=== PATIENT | female | born 1935 | race Caucasian/White ===

== ENCOUNTER 2017-02-03 17:06 | Inpatient (IN) | payer OTHER ==
[~2017-02-03] VITALS: Ht 162.6 cm; Wt 69.1 kg
[~2017-02-03 17:06] MED LIST: ACT15 PO; ALL180 PO; ASPCH81; ATOR-22 PO; CLON0.5T3 PO; CLOP1TAB15 PO; CLX20 PO; CRG3125 PO; DTRSR4 PO; GLC5 PO; LISI5TAB3 PO; LSX20 PO; NTRGSL/4 UT
[2017-02-03] MEDS ORDERED: ALBUT/IPRATROP 3MG/0.5MG NEB 3 ML VIAL INH ONE (17:45)
[2017-02-03 19:20] LABS: MANUAL MICROSCOPIC REQUIRED? NO; REVIEW REQ? NO; URINE APPEARANCE CLOUDY (CLEAR); URINE BILIRUBIN NEG (NEG); URINE COLOR YELLOW; URINE NITRITE POS (NEG); URINE PH 5.5 (4.5-7.5); URINE SPECIFIC GRAVITY 1.016 (1.000-1.030); UROBILINOGEN NEG (NEG); ZZUR CULT IF INDIC CLEAN CATCH YES
--- NOTE | 2017-02-03 19:27 | DIAGNOSTIC IMAGING REPORT ---
CHEST 2 VIEWS ROUTINE CLINICAL HISTORY: Shortness of breath. COMPARISON STUDY: Chest radiograph January 31, 2007 FINDINGS: A dual lead left subclavian pacemaker is in place. There is no pneumothorax or pleural effusion. There is no consolidation to suggest pneumonia. Pulmonary vascularity is normal. IMPRESSION: No acute cardiopulmonary findings. Electronically signed by: Alfredo Mosquera M.D. 02/03/2017 7:26 PM Dictated Date/Time: 02/03/2017 7:24 PM
[2017-02-03 19:50] LABS: BASO % 0.6 %; BASO ABS # 0.04 K/uL (0-0.2); COMPLETE YES; EOS % 5.2 %; HEMATOCRIT 38.4 % (37-47); IG% 0.2 %; LYMPH % 22.8 %; LYMPH ABS # 1.45 K/uL (1.2-3.4); MEAN CELL VOLUME 92.3 fL (80-100); MEAN CORPUSCULAR HEMOGLOBIN 30.3 pg (25-34); MEAN CORPUSCULAR HGB CONC 32.8 g/dl (32-36); MONO % 10.1 %; NEUT % 61.1 %; PLATELET COUNT 177 K/uL (130-400); RED BLOOD COUNT 4.16 M/uL (4.2-5.4); WHITE BLOOD COUNT 6.36 K/uL (4.8-10.8)
[2017-02-03 20:10] LABS: ALT/SGPT 16 U/L (12-78); AST/SGOT 16 U/L (15-37); BLOOD UREA NITROGEN 16 mg/dl (7-18); BUN/CREATININE RATIO 15.3 (10-20); CARBON DIOXIDE 30 mmol/L (21-32); CHLORIDE 103 mmol/L (98-107); CREATININE 1.02 mg/dl (0.60-1.20); GLUCOSE 163 mg/dl (70-99); SODIUM 138 mmol/L (136-145)
[2017-02-03 20:16] LABS: ALKALINE PHOSPHATASE 47 U/L (45-117)
[2017-02-03] MEDS ORDERED: ASPI81TA28 PO (20:16)
[2017-02-03] MEDS ORDERED: SIMV40TA2 PO (20:16)
[2017-02-03] MEDS ORDERED: CARV3.12 PO (20:16)
[2017-02-03] MEDS ORDERED: CITA20TA4 PO (20:16)
[2017-02-03] MEDS ORDERED: LISI10TA PO (20:16)
[2017-02-03] MEDS ORDERED: GLIM1TAB2 PO (20:16)
[2017-02-03] MEDS ORDERED: RISP0.5T10 PO (20:16)
[2017-02-03] MEDS ORDERED: DTR/5 PO (20:16)
[2017-02-03] MEDS ORDERED: CEFTRIAXONE SOD INJ 1 GM ADDVIAL IV STA (20:31)
[2017-02-03] MEDS ORDERED: METHYLPREDNISOLONE 125 MG VIAL IV STA (20:31)
[2017-02-03] MEDS ORDERED: GLUCOSE 10 TABS/TUBE PO PRN (22:00)
[2017-02-03] MEDS ORDERED: GLUCAGON FOR INJ 1 MG VIAL SQ PRN (22:00)
[2017-02-03] MEDS ORDERED: GLUCOSE 40% GEL 15 GM TUBE PO PRN (22:00)
[2017-02-03] MEDS ORDERED: DEXTROSE 50% 50 ML SYR IV PRN (22:00)
--- NOTE | 2017-02-03 22:37 | EMERGENCY ROOM VISIT NOTE ---
History First contact with patient: 17:28 Chief Complaint: RESPIRATORY PROBLEMS Stated Complaint: HARD TIME BREATHING, SORES ON HER BODY Nursing Triage Summary: pt states difficulty breathing for "months now worsening today," daughter here states she is unable to let mother go home in "condition she is in without her knowing if she is ok." Pt 93% on RA, RR 22 at this time, increased RR with exertion. Pt lungs clear to auscultation at this time. History of Present Illness The patient is a 81 year old female who presents to the Emergency Room with complaints of intermittent episodes of shortness of breath over the past few months. The patient is accompanied today by her daughter, who helps provide much of the history. The patient has a history of cardiac disease with pacemaker, as well as diabetes. The patient symptoms are distinctly worse with walking up and down the stairs to use the bathroom at home. The patient does not have episodes of chest pain with this, but needs to rest in order to breathe properly. Sometimes this will happen at rest when she is not doing anything at all. She has not had fever or chills. No abdominal pain. She believes that she has been eating and drinking as normal. She does follow with [facility], and states that she saw her primary care physician earlier in the week. She was felt to be at her baseline for that visit, and was rescheduled for a routine visit in March. The patient does have cats at home, and while she does not have a known allergy to this, there is concern there may be some allergic factors involved according to the family. The patient does not wear oxygen at home. No history of tobacco use or known COPD/emphysema. She rates her current discomfort a 2/10. Review of Systems More than 10 systems were reviewed and otherwise negative with the exception of history of present illness. Past Medical/Surgical History History of diabetes, cardiac disease, pacemaker Family History No pertinent family history Social History Smoking Status: Never Smoker Current/Historical Medications Scheduled Aspirin (Aspirin Ec), 81 MG PO DAILY Carvedilol (Coreg), 3.125 MG PO BIDM Citalopram Hydrobromide (Citalopram Hydrobromide), 20 MG PO HS Glimepiride (Glimepiride), 1 MG PO QAM Lisinopril (Prinivil), 10 MG PO DAILY Nitroglycerin (Nitrostat), 0.4 MG UT PRN Oxybutynin Chloride (Ditropan), 5 MG PO BID Risperidone (Risperdal), 0.5 MG PO QAM Simvastatin (Zocor), 40 MG PO HS Physical Exam Vital Signs Date Time Temp Pulse Resp B/P (MAP) Pulse Ox O2 Delivery O2 Flow Rate FiO2 02/03/17 22:06 59 19 97 02/03/17 22:01 165/97 02/03/17 21:51 59 18 96 02/03/17 21:36 66 19 94 02/03/17 21:31 156/96 02/03/17 21:21 61 19 98 02/03/17 21:16 61 22 95 02/03/17 21:02 163/106 02/03/17 21:01 65 19 91 02/03/17 20:55 66 02/03/17 20:46 66 20 92 02/03/17 20:31 63 19 136/75 93 02/03/17 20:16 63 19 97 02/03/17 20:01 65 20 121/74 95 02/03/17 19:46 66 18 96 02/03/17 19:41 72 22 96 Nasal Cannula 2.0 02/03/17 19:39 139/74 02/03/17 19:30 Nasal Cannula 2.0 02/03/17 19:30 87 Room Air 02/03/17 19:26 65 21 89 02/03/17 19:11 66 20 92 02/03/17 19:06 78 24 02/03/17 18:36 70 20 02/03/17 18:06 67 23 02/03/17 17:48 92 Room Air 02/03/17 17:36 73 24 92 02/03/17 17:31 124/58 02/03/17 17:24 72 02/03/17 17:19 173/72 02/03/17 17:18 92 Room Air 02/03/17 17:18 92 Room Air 02/03/17 17:09 36.5 79 20 157/67 95 Room Air Physical Exam VITALS: Vitals are noted on the nurse's note and reviewed by myself. Vital signs with hypoxia GENERAL: Elderly-appearing female who is comfortable and cooperative with the exam. She is frail, but able to speak in full sentences. HEART: Regular rate and rhythm without murmurs gallops or rubs. LUNGS: Essentially clear breath sounds bilateral. Lung sounds are best appreciated in the lower miller, while the upper miller do sound somewhat distant. ABDOMEN: Positive normal bowel sounds x 4. Soft, nontender, without masses or organomegaly. No guarding or rebound tenderness. No CVA tenderness. MUSCULOSKELETAL: No muscle atrophy, erythema, or edema noted. Full range of motion without joint tenderness in all extremities. NEURO: Patient was alert and oriented to person place and time. CN II through XII grossly intact. SKIN: The skin was with several superficial scratch/excoriated areas primarily on the proximal thighs and anterior lower legs. None of these appear distinctly infected Medical Decision & Procedures ER Provider Diagnostic Interpretation: CHEST 2 VIEWS ROUTINE CLINICAL HISTORY: Shortness of breath. COMPARISON STUDY: Chest radiograph January 31, 2007 FINDINGS: A dual lead left subclavian pacemaker is in place. There is no pneumothorax or pleural effusion. There is no consolidation to suggest pneumonia. Pulmonary vascularity is normal. IMPRESSION: No acute cardiopulmonary findings. Laboratory Results 02/03/17 19:35 Red Blood Count 4.16, Mean Corpuscular Volume 92.3, Mean Corpuscular Hemoglobin 30.3, Mean Corpuscular Hemoglobin Concent 32.8, Mean Platelet Volume 9.0, Neutrophils (%) (Auto) 61.1, Lymphocytes (%) (Auto) 22.8, Monocytes (%) (Auto) 10.1, Eosinophils (%) (Auto) 5.2, Basophils (%) (Auto) 0.6, Neutrophils # (Auto ) 3.89, Lymphocytes # (Auto) 1.45, Monocytes # (Auto) 0.64, Eosinophils # (Auto ) 0.33, Basophils # (Auto) 0.04 02/03/17 19:35 Test 02/03/17 00:00 02/03/17 19:35 02/03/17 19:43 Urine Color YELLOW Urine Appearance CLOUDY (CLEAR) Urine pH 5.5 (4.5-7.5) Urine Specific [place] 1.016 (1.000-1.030) Urine Protein NEG (NEG) Urine Glucose (UA) NEG (NEG) Urine Ketones NEG (NEG) Urine Occult Blood NEG (NEG) Urine Nitrite POS (NEG) Urine Bilirubin NEG (NEG) Urine Urobilinogen NEG (NEG) Urine Leukocyte Esterase LARGE (NEG) Urine WBC (Auto) >30 /hpf (0-5) Urine RBC (Auto) 0-4 /hpf (0-4) Urine Hyaline Casts (Auto) 1-5 /lpf (0-5) Urine Epithelial Cells (Auto) 10-20 /lpf (0-5) Urine Bacteria (Auto) 3+ (NEG) White Blood Count 6.36 K/uL (4.8-10.8) Red Blood Count 4.16 M/uL (4.2-5.4) Hemoglobin 12.6 g/dL (12.0-16.0) Hematocrit 38.4 % (37-47) Mean Corpuscular Volume 92.3 fL (80-100) Mean Corpuscular Hemoglobin 30.3 pg (25-34) Mean Corpuscular Hemoglobin Concent 32.8 g/dl (32-36) Platelet Count 177 K/uL (130-400) Mean Platelet Volume 9.0 fL (7.4-10.4) Neutrophils (%) (Auto) 61.1 % Lymphocytes (%) (Auto) 22.8 % Monocytes (%) (Auto) 10.1 % Eosinophils (%) (Auto) 5.2 % Basophils (%) (Auto) 0.6 % Neutrophils # (Auto) 3.89 K/uL (1.4-6.5) Lymphocytes # (Auto) 1.45 K/uL (1.2-3.4) Monocytes # (Auto) 0.64 K/uL (0.11-0.59) Eosinophils # (Auto) 0.33 K/uL (0-0.5) Basophils # (Auto) 0.04 K/uL (0-0.2) RDW Standard Deviation 43.8 fL (36.4-46.3) RDW Coefficient of Variation 13.0 % (11.5-14.5) Immature Granulocyte % (Auto) 0.2 % Immature Granulocyte # (Auto) 0.01 K/uL (0.00-0.02) Anion Gap 5.0 mmol/L (3-11) Estimated GFR () 58.9 Estimated GFR (Non- 50.8 BUN/Creatinine Ratio 15.3 (10-20) Calcium Level 9.0 mg/dl (8.5-10.1) Total Bilirubin 0.2 mg/dl (0.2-1) Aspartate Amino Transf (AST/SGOT) 16 U/L (15-37) Alanine Aminotransferase (ALT/SGPT) 16 U/L (12-78) Alkaline Phosphatase 47 U/L (45-117) Pro-B-Type Natriuretic Peptide 202 pg/ml (0-1800) Total Protein 6.7 gm/dl (6.4-8.2) Albumin 3.4 gm/dl (3.4-5.0) Globulin 3.3 gm/dl (2.5-4.0) Albumin/Globulin Ratio 1.0 (0.9-2) Chemistry Specimen Hemolysis Bedside Troponin I < 0.030 ng/ml (0-0.045) Medications Administered Medications (Trade) Dose Ordered Sig/Cesar Route Start Time Stop Time Status Last Admin Dose Admin Albuterol/ Ipratropium (Duoneb) 3 ml NOW ONCE INH 02/03/17 17:45 02/03/17 17:46 DC 02/03/17 17:45 3 ML Methylprednisolone Sodium Succinate (Solu-Medrol IV) 125 mg NOW STAT IV 02/03/17 20:31 02/03/17 20:32 DC 02/03/17 20:48 125 MG Ceftriaxone Sodium (Rocephin Inj) 1 gm NOW STAT IV 02/03/17 20:31 02/03/17 20:32 DC 02/03/17 20:52 1 GM ED Course Physical exam and history were performed. Nursing notes, EMR, and Medication List were personally reviewed. Patient appears to have episodes of symptomatic shortness of breath. She does have a history of both diabetes and significant cardiac disease. IV access was established and labs were obtained. The patient's breath sounds are essentially clear, however they are somewhat distant in the upper miller, and I did elect to give her a DuoNeb treatment here in the department. EKG was performed and was normal sinus rhythm with occasional pacing. There was no sign of ischemia. The patient's blood work is as above and was reviewed. She does not have a significant elevated white blood cell count, gross anemia, bandemia, or significant electrolyte imbalance. Troponin 1 is negative. Her urine is highly suggestive of a UTI, and she was given Rocephin IV here in the department. The patient did have an unprovoked episode of hypoxia, where her pulse ox was 87%. This event was witnessed by nursing, and the patient did indicate to nursing that this has occurred in the past. The patient was not having dysrhythmia during this episode, and her symptoms improved after being placed on 2 L oxygen nasal cannula. I discussed the case with my attending physician, Dr Marcos, who also independently evaluated the patient. Our concern for the patient is that she is having episodes of symptomatic shortness of breath and hypoxia. She is a cardiac patient who is also diabetic. Overall I do not feel the patient is stable for discharge home at this time. She was given a dose of Solu-Medrol as this may help with her breathing. I discussed the case with the on-call [facility] hospitalist, who agreed to evaluate patient here in the department. Please see their dictation for further patient course, plan, and disposition. The chart was completed utilizing [employer] Speech Voice Recognition Software. Grammatical errors, random word insertions, pronoun errors, and incomplete sentences are an occasional consequence of this system due to software limitations, ambient noise, and hardware issues. Any formal questions or concerns about the content, text, or information contained within the body of this dictation should be directly addressed to the provider for clarification. . Medical Decision Differential diagnosis: Etiologies such as infections, reactive airway disease, pneumonia, pneumothorax , COPD, CHF, cardiac ischemia, pulmonary embolism, musculoskeletal, gastrointestinal, as well as others were entertained. Blood Pressure Screening Patient's blood pressure: Elevated blood pressure Blood pressure disposition: Did not require urgent referral (Patient being admitted) Impression Primary Impression: Hypoxia Additional Impression: UTI (urinary tract infection) Departure Information Referrals Timo Hart M.D. (PCP) Patient Instructions My [facility] Problem Qualifiers
--- NOTE | 2017-02-03 22:39 | EMERGENCY ROOM VISIT NOTE ---
ED Visit Note First contact with patient: 17:28 The patient was seen and examined with Gautam Langley PA-C. I agree with the history, physical and findings. Please see the note for disposition and details. The patient is doing better with supplemental oxygen and a nebulizer treatment. Due to the hypoxia the patient will need to be treated in the hospital. Consultation was made with internal medicine.
[2017-02-03] MEDS ORDERED: ACETAMINOPHEN 325 MG TAB PO PRN (23:00)
[2017-02-03] MEDS ORDERED: POLYETHYLENE (MIRALAX) 17 GM PACK PO PRN (23:00)
[2017-02-03] MEDS ORDERED: ONDANSETRON INJ 2 MG/ML 2 ML VIAL IV PRN (23:00)
[2017-02-03] MEDS ORDERED: ALUMINUM/MAGNESIUM/SIMETH (MAALOX MAX) 30 ML UDC PO PRN (23:00)
[2017-02-03] MEDS ORDERED: MAGNESIUM HYDROXIDE SUSP 30 ML UDC PO PRN (23:00)
[2017-02-04] VITALS (9 sets, daily range): BP systolic 115–137; BP diastolic 65–74; PULSE 66–80; TEMP 36.6–36.9; O2SAT 91–96; Ht 162.6 cm; Wt 69.1 kg
--- NOTE | 2017-02-04 01:00 | History and Physical ---
History & Physical Date & Time of Service: Feb 04, 2017 at 00:37 Chief Complaint: Hypoxia, Uti Primary Care Physician: Timo Hart M.D. History of Present Illness Source: patient, family, clinic records This is an 81 year old female with a PMH of CAD s/p stents, sick sinus syndrome s/p permanent pacemaker, depression/anxiety, HTN, DM2, HLD presents with shortness of breath for the past few months and worse the past few days. She denies any chest pain. Denies fevers/chills, denies cough/production. She states that the breathing is worse when she is walking up and down stairs and with exertion, but improves with rest. Denies smoking history; no immediate family members smoke. As per family members, they are concerned because the patient may be allergic to cats and she has some at home. Some family members spoke to me on their own expressing concern about her home situation - the cats may be urinating around the house as the house smells of cat urine. She does not take any inhalers, but was told she was to be on an inhaler in the past. Social History Smoking Status: Never Smoker Immunizations History of Influenza Vaccine: Yes Influenza Vaccine Date: Dec 21, 2006 History of Tetanus Vaccine?: Yes Tetanus Immunization Date: Dec 21, 2006 History of Pneumococcal: No History of Hepatitis B Vaccine: No Multi-Drug Resistant Organisms History of MDRO: No Allergies Coded Allergies: Tramadol (Verified Allergy, Unknown, 04/16/09) Home Medications Scheduled Aspirin (Aspirin Ec), 81 MG PO DAILY Carvedilol (Coreg), 3.125 MG PO BIDM Citalopram Hydrobromide (Citalopram Hydrobromide), 20 MG PO HS Glimepiride (Glimepiride), 1 MG PO QAM Lisinopril (Prinivil), 10 MG PO DAILY Nitroglycerin (Nitrostat), 0.4 MG UT PRN Oxybutynin Chloride (Ditropan), 5 MG PO BID Risperidone (Risperdal), 0.5 MG PO QAM Simvastatin (Zocor), 40 MG PO HS Review of Systems Constitutional: No fever, No chills Eyes: No worsening of vision ENT: No hearing loss Respiratory: + shortness of breath, + dyspnea on exertion, No cough, No sputum , No wheezing, No dyspnea at rest, No hemoptysis Cardiovascular: No chest pain, No orthopnea, No PND, No edema, No claudication , No palpitations Abdomen: No pain, No nausea, No vomiting, No diarrhea, No constipation, No GI bleeding Musculoskeletal: No joint pain, No muscle pain Genitourinary - Female: No dysuria, No urinary frequency, No urinary urgency, No urinary incontinence, No urinary retention, No hematuria Neurologic: No weakness, No numbness/tingling, No vertigo, No balance problems Psychiatric: No depression symptoms, No anxiety, No insomnia Endocrine: No fatigue, No excessive thirst Hematologic / Lymphatic: No abnormal bleeding/bruising Integumentary: No rash Allergic / Immunologic: + pet sensitivities, No environmental allergies, No seasonal allergies Physical Exam Vital Signs Date Time Temp Pulse Resp B/P (MAP) Pulse Ox O2 Delivery O2 Flow Rate FiO2 02/03/17 23:22 64 20 97 02/03/17 23:07 65 20 97 02/03/17 23:02 151/105 02/03/17 23:01 64 20 96 Nasal Cannula 2.0 02/03/17 22:41 61 18 95 02/03/17 22:32 136/94 02/03/17 22:26 65 17 95 02/03/17 22:11 66 16 96 02/03/17 22:06 59 19 97 02/03/17 22:01 165/97 02/03/17 21:51 59 18 96 02/03/17 21:36 66 19 94 02/03/17 21:31 156/96 02/03/17 21:21 61 19 98 02/03/17 21:16 61 22 95 02/03/17 21:02 163/106 02/03/17 21:01 65 19 91 02/03/17 20:55 66 02/03/17 20:46 66 20 92 02/03/17 20:31 63 19 136/75 93 02/03/17 20:16 63 19 97 02/03/17 20:01 65 20 121/74 95 02/03/17 19:46 66 18 96 02/03/17 19:41 72 22 96 Nasal Cannula 2.0 02/03/17 19:39 139/74 02/03/17 19:30 Nasal Cannula 2.0 02/03/17 19:30 87 Room Air 02/03/17 19:26 65 21 89 02/03/17 19:11 66 20 92 02/03/17 19:06 78 24 02/03/17 18:36 70 20 02/03/17 18:06 67 23 02/03/17 17:48 92 Room Air 02/03/17 17:36 73 24 92 02/03/17 17:31 124/58 02/03/17 17:24 72 02/03/17 17:19 173/72 02/03/17 17:18 92 Room Air 02/03/17 17:18 92 Room Air 02/03/17 17:09 36.5 79 20 157/67 95 Room Air General Appearance: no apparent distress Head: normocephalic, atraumatic Eyes: normal inspection ENT: hearing grossly normal Neck: supple, no adenopathy, thyroid normal, no JVD Respiratory/Chest: chest non-tender, lungs clear, normal breath sounds, no respiratory distress, no accessory muscle use Cardiovascular: regular rate, rhythm, no edema, no gallop, no JVD, no murmur, normal peripheral pulses Abdomen/GI: normal bowel sounds, non tender, soft Back: no CVA tenderness, no muscle spasm Extremities/Musculoskelatal: normal inspection, no calf tenderness, normal capillary refill, no pedal edema, normal range of motion 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, no motor/sensory deficits, alert, oriented x 3 Skin: normal color Lymphatic: no adenopathy Diagnostics Laboratory Results Results Past 24 Hours Test 02/03/17 19:35 02/03/17 19:43 Range/Units White Blood Count 6.36 4.8-10.8 K/uL Red Blood Count 4.16 4.2-5.4 M/uL Hemoglobin 12.6 12.0-16.0 g/dL Hematocrit 38.4 37-47 % Mean Corpuscular Volume 92.3 80-100 fL Mean Corpuscular Hemoglobin 30.3 25-34 pg Mean Corpuscular Hemoglobin Concent 32.8 32-36 g/dl Platelet Count 177 130-400 K/uL Mean Platelet Volume 9.0 7.4-10.4 fL Neutrophils (%) (Auto) 61.1 % Lymphocytes (%) (Auto) 22.8 % Monocytes (%) (Auto) 10.1 % Eosinophils (%) (Auto) 5.2 % Basophils (%) (Auto) 0.6 % Neutrophils # (Auto) 3.89 1.4-6.5 K/uL Lymphocytes # (Auto) 1.45 1.2-3.4 K/uL Monocytes # (Auto) 0.64 0.11-0.59 K/uL Eosinophils # (Auto) 0.33 0-0.5 K/uL Basophils # (Auto) 0.04 0-0.2 K/uL RDW Standard Deviation 43.8 36.4-46.3 fL RDW Coefficient of Variation 13.0 11.5-14.5 % Immature Granulocyte % (Auto) 0.2 % Immature Granulocyte # (Auto) 0.01 0.00-0.02 K/uL Sodium Level 138 136-145 mmol/L Potassium Level 4.0 3.5-5.1 mmol/L Chloride Level 103 98-107 mmol/L Carbon Dioxide Level 30 21-32 mmol/L Anion Gap 5.0 3-11 mmol/L Blood Urea Nitrogen 16 7-18 mg/dl Creatinine 1.02 0.60-1.20 mg/dl Estimated GFR () 58.9 Estimated GFR (Non- 50.8 BUN/Creatinine Ratio 15.3 10-20 Random Glucose 163 70-99 mg/dl Calcium Level 9.0 8.5-10.1 mg/dl Total Bilirubin 0.2 0.2-1 mg/dl Aspartate Amino Transf (AST/SGOT) 16 15-37 U/L Alanine Aminotransferase (ALT/SGPT) 16 12-78 U/L Alkaline Phosphatase 47 45-117 U/L Pro-B-Type Natriuretic Peptide 202 0-1800 pg/ml Total Protein 6.7 6.4-8.2 gm/dl Albumin 3.4 3.4-5.0 gm/dl Globulin 3.3 2.5-4.0 gm/dl Albumin/Globulin Ratio 1.0 0.9-2 Chemistry Specimen Hemolysis Bedside Troponin I < 0.030 0-0.045 ng/ml Diagnostic Radiology CHEST 2 VIEWS ROUTINE CLINICAL HISTORY: Shortness of breath. COMPARISON STUDY: Chest radiograph January 31, 2007 FINDINGS: A dual lead left subclavian pacemaker is in place. There is no pneumothorax or pleural effusion. There is no consolidation to suggest pneumonia. Pulmonary vascularity is normal. IMPRESSION: No acute cardiopulmonary findings. EKG Sinus rhythm with Fusion complexes Low voltage QRS Impression Assessment and Plan This is an 81 year old female with a PMH of CAD s/p stents, sick sinus syndrome s/p permanent pacemaker, depression/anxiety, HTN, DM2, HLD presents with shortness of breath, dyspnea with exertion and hypoxia Shortness of Breath/Hypoxia possibly related to upper respiratory infection vs. allergy/asthma as per family, they are concerned about cat allergy improving symptoms with supplemental O2 via nasal cannula will start prednisone 40mg in AM, short taper nebulizers as needed O2 as needed, wean as tolerated may need inhaler on discharge CAD s/p stents no chest pain there is dyspnea with exertion will get an updated echo trend cardiac enzymes continue aspirin, b-maddison, statin Sick Sinus Syndrome s/p pacemaker in situ pacemaker interrogation Urinary Tract Infection UA dirty urine culture pending started on Rocephin DM2 hold oral agents sliding scale insulin started BSGs ACHS HTN blood pressure improving continue Lisinopril, Coreg Depression/Anxiety continue current medications DVT ppx subq heparin FULL CODE VTE Prophylaxis VTE Risk Assessment Done? Y/N: Yes Risk Level: Moderate
[2017-02-04 03:48] LABS: HEMATOCRIT 40.9 % (37-47); MEAN CELL VOLUME 92.1 fL (80-100); MEAN CORPUSCULAR HGB CONC 32.5 g/dl (32-36); MEAN PLATELET VOLUME 8.8 fL (7.4-10.4); PLATELET COUNT 192 K/uL (130-400); RED BLOOD COUNT 4.44 M/uL (4.2-5.4); WHITE BLOOD COUNT 7.03 K/uL (4.8-10.8)
[2017-02-04 04:07] LABS: BLOOD UREA NITROGEN 15 mg/dl (7-18); BUN/CREATININE RATIO 18.7 (10-20); CALCIUM 8.7 mg/dl (8.5-10.1); CARBON DIOXIDE 27 mmol/L (21-32); CHLORIDE 103 mmol/L (98-107); CREATININE 0.82 mg/dl (0.60-1.20); GLUCOSE 214 mg/dl (70-99); POTASSIUM 4.2 mmol/L (3.5-5.1); SODIUM 137 mmol/L (136-145)
[2017-02-04 04:13] LABS: CHOLESTEROL 118 mg/dl (0-200); CHOLESTEROL/HDL RATIO 2.4; CKMB/CK RATIO 1.4 (0-3.0); HDL CHOLESTEROL 49 mg/dl; LDL CHOLESTEROL CALCULATED 62 mg/dl; TRIGLYCERIDES 35 mg/dl (0-150); VERY LOW DENSITY LIPOPROT CALC 7 mg/dl
[2017-02-04] MEDS: HEPARIN SOD 5000 UNIT/0.5 ML CARP SQ SCH ×3 (06:03→21:31)
[2017-02-04] MEDS: ALBUT/IPRATROP 3MG/0.5MG NEB 3 ML VIAL INH SCH ×4 (07:10→18:40)
[2017-02-04] MEDS: ASPIRIN 81 MG ECTAB PO SCH (08:10)
[2017-02-04] MEDS: RISPERIDONE 0.5 MG TAB PO SCH (08:10)
[2017-02-04] MEDS: LISINOPRIL 10 MG TAB PO SCH (08:10)
[2017-02-04] MEDS: CARVEDILOL 3.125 MG TAB PO SCH ×2 (08:10→18:14)
[2017-02-04] MEDS: OXYBUTYNIN CHLORIDE 5 MG TAB PO SCH ×2 (08:10→21:28)
[2017-02-04] MEDS: INSULIN ASPART 100 UNITS/ML 3 ML PEN SC SCH ×4 (08:38→21:00)
[2017-02-04 12:29] LABS: CKMB/CK RATIO 1.6 (0-3.0)
--- NOTE | 2017-02-04 16:06 | ECHOCARDIOGRAM REPORT ---
*NOTICE TO RECEIVING [facility] This information is strictly Confidential and protected under [place] law. [place] law prohibits you from making any further disclosure of this information unless further disclosure is expressly permitted by the written consent of the person to whom it pertains or is authorized by law. A general authorization for the release of medical or other information is not sufficient for this purpose. Hospital accepts no responsibility if the information is made available to any other person, INCLUDING THE PATIENT. Interpretation Summary * Name: ALBARO CUBA Study Date: 02/04/2017 01:18 PM BP: 137/74 mmHg * Patient Location: [id number].4E\[id number]\E405\S\1 HR: 77 * : 1935 (M/d/yyyy) Gender: Female Height: 64 in * Age: 81 yrs Ethnicity: [place] Weight: 140 lb * Ordering Physician: Ryan Haynes * Referring Physician: Self, Referred * Performed By: Renato Araiza RDCS * * Reason For Study: CHF * BSA: 1.7 m2 * -- Conclusions -- * No regional wall motion abnormalities noted. * Left ventricular systolic function is normal to hyperdynamic. * The LV Ejection Fraction = 65-70%. * The right ventricle is normal size. * The right ventricular systolic function is normal as assessed by tricuspid annular plane systolic excursion (TAPSE) (normal >1.5 cm). * There is a pacemaker lead in the right ventricle. * Aortic valve sclerosis mild, without significant aortic valvular stenosis. * Doppler findings do not suggest pulmonary hypertension. * The inferior vena cava is dilated with appropriate inspiratory collapse, consistent with an intermediate right atrial pressure of 8 mm Hg. * There is a small circumferential pericardial effusion. * There are no echocardiographic indications of cardiac tamponade. Procedure Details * A complete two-dimensional transthoracic echocardiogram was performed (2D, M-mode, Doppler and color flow Doppler). * The study was technically adequate. Left Ventricle * The left ventricle is normal in size. * There is normal left ventricular wall thickness. * Ejection Fraction = 65-70%. * Left ventricular systolic function is normal. * The left ventricular wall motion is normal. * No regional wall motion abnormalities noted. Right Ventricle * The right ventricle is normal size. * There is a pacemaker lead in the right ventricle. * The right ventricular systolic function is normal as assessed by tricuspid annular plane systolic excursion (TAPSE) (normal >1.5 cm). Atria * The left atrial size is normal. * Right atrial size is normal. * There is no evidence of atrial septal defect, but resolution does not allow assessment for a patent foramen ovale. Mitral Valve * The anterior mitral valve leaflet is mildly calcified. * There is no mitral valve stenosis. * Significant mitral regurgitation is absent. Tricuspid Valve * The tricuspid valve is normal. * There is no tricuspid stenosis. * Significant tricuspid regurgitation is absent. * Doppler findings do not suggest pulmonary hypertension. Aortic Valve * The aortic valve is trileaflet. * Aortic valve sclerosis mild, without significant aortic valvular stenosis. * Aortic stenosis is absent. * There is no significant aortic regurgitation. Pulmonic Valve * The pulmonary valve is not well seen, but the Doppler examination is normal without significant regurgitation or stenosis. Great Vessels * The aortic root and proximal ascending aorta are normal sized. Pericardium/Pleural * There is a small circumferential pericardial effusion. * There are no echocardiographic indications of cardiac tamponade. Great Vessels * The inferior vena cava is dilated with appropriate inspiratory collapse, consistent with an intermediate right atrial pressure of 8 mm Hg. Left Ventricular Diastolic Function * Grade I diastolic dysfunction, (abnormal relaxation pattern). MMode 2D Measurements and Calculations IVSd 1.1 cm IVSs 1.3 cm LVIDd 4.1 cm LVIDs 1.7 cm LVPWd 1.1 cm LVPWs 1.5 cm IVS/LVPW 1.0 FS 57.1 % EDV(Teich) 73.1 ml ESV(Teich) 9.0 ml EF(Teich) 87.6 % EDV(cubed) 67.6 ml ESV(cubed) 5.4 ml EF(cubed) 92.1 % % IVS thick 20.2 % % LVPW thick 41.7 % LV mass(C)d 150.2 grams LV mass(C)dI 89.4 grams/m\S\2 LV mass(C)s 78.9 grams LV mass(C)sI 46.9 grams/m\S\2 SV(Teich) 64.1 ml SI(Teich) 38.1 ml/m\S\2 SV(cubed) 62.3 ml SI(cubed) 37.0 ml/m\S\2 ACS 1.6 cm LA dimension 3.1 cm LVOT diam 1.9 cm LVOT area 2.8 cm\S\2 LVAd ap4 15.5 cm\S\2 LVLd ap4 6.8 cm EDV(MOD-sp4) 29.9 ml EDV(sp4-el) 29.8 ml LVAs ap4 6.3 cm\S\2 LVLs ap4 4.9 cm ESV(MOD-sp4) 6.6 ml ESV(sp4-el) 6.9 ml EF(MOD-sp4) 77.8 % EF(sp4-el) 76.8 % LVAd ap2 12.3 cm\S\2 LVLd ap2 6.1 cm EDV(MOD-sp2) 21.4 ml EDV(sp2-el) 21.3 ml LVAs ap2 5.8 cm\S\2 LVLs ap2 5.2 cm ESV(MOD-sp2) 5.8 ml ESV(sp2-el) 5.4 ml EF(MOD-sp2) 73.0 % EF(sp2-el) 74.6 % LVLd %diff -13.08 % EDV(MOD-bp) 26.7 ml LVLs %diff 6.4 % ESV(MOD-bp) 6.2 ml EF(MOD-bp) 76.7 % SV(MOD-sp4) 23.3 ml SI(MOD-sp4) 13.9 ml/m\S\2 SV(MOD-sp2) 15.6 ml SI(MOD-sp2) 9.3 ml/m\S\2 SV(MOD-bp) 20.5 ml SI(MOD-bp) 12.2 ml/m\S\2 SV(sp4-el) 22.9 ml SI(sp4-el) 13.6 ml/m\S\2 SV(sp2-el) 15.9 ml SI(sp2-el) 9.5 ml/m\S\2 Doppler Measurements and Calculations MV E max shahram 87.4 cm/sec MV A max shahram 118.6 cm/sec MV E/A 0.74 MV dec time 0.25 sec Ao V2 max 149.4 cm/sec Ao max PG 8.9 mmHg Ao max PG (full) 2.1 mmHg SHAYLEE(V,A) 2.5 cm\S\2 SHAYLEE(V,D) 2.5 cm\S\2 LV V1 max PG 6.8 mmHg LV V1 max 130.3 cm/sec PA V2 max 101.5 cm/sec PA max PG 4.1 mmHg TR max shahram 253.0 cm/sec
[2017-02-04] MEDS: CEFTRIAXONE SOD INJ 1 GM in DEXTROSE 5% ADD-VANTAGE 50ML 50 ML IV SCH (21:27)
[2017-02-04] MEDS: CITALOPRAM 20 MG TAB PO SCH (21:28)
[2017-02-04] MEDS: SIMVASTATIN 40 MG TAB PO SCH (21:28)
[2017-02-04] MEDS: INSULIN GLARGINE SOLOSTAR 100 UNITS/ML 3 ML PEN SC SCH (21:31)
--- NOTE | 2017-02-04 22:33 | Progress Note ---
Medicine Progress Note Date & Time of Visit: Feb 04, 2017 at ~ 11:00 . Subjective Persistent dyspnea on exertion. Rare nonproductive cough. No anginal symptoms. No chest pain. No nausea, vomiting, diarrhea. . Objective Last 8 Hrs Date Time Temp Pulse Resp B/P (MAP) Pulse Ox O2 Delivery O2 Flow Rate FiO2 02/04/17 18:42 77 16 91 Room Air 02/04/17 15:55 36.6 80 22 133/65 (87) 91 Nasal Cannula 2.0 02/04/17 15:30 91 Nasal Cannula 2.0 02/04/17 14:21 76 16 92 Room Air Physical Exam: General- no distress Neck- no JVD Lungs- coarse rales at bases Heart- RRR, normal S1 and S2, no murmur or gallop appreciated Abdomen- + BS, soft, nontender Extremities- no pretibial edema or calf tenderness Neuro- alert Skin- warm and dry . Laboratory Results: Last 24 Hours Test 02/04/17 03:39 02/04/17 07:26 02/04/17 11:28 02/04/17 11:36 White Blood Count 7.03 K/uL Red Blood Count 4.44 M/uL Hemoglobin 13.3 g/dL Hematocrit 40.9 % Mean Corpuscular Volume 92.1 fL Mean Corpuscular Hemoglobin 30.0 pg Mean Corpuscular Hemoglobin Concent 32.5 g/dl RDW Standard Deviation 43.0 fL RDW Coefficient of Variation 12.7 % Platelet Count 192 K/uL Mean Platelet Volume 8.8 fL Prothrombin Time 11.0 SECONDS Prothromb Time International Ratio 1.0 Sodium Level 137 mmol/L Potassium Level 4.2 mmol/L Chloride Level 103 mmol/L Carbon Dioxide Level 27 mmol/L Anion Gap 7.0 mmol/L Blood Urea Nitrogen 15 mg/dl Creatinine 0.82 mg/dl Est Creatinine Clear Calc Drug Dose 49.6 ml/min Estimated GFR () 76.7 Estimated GFR (Non- 66.2 BUN/Creatinine Ratio 18.7 Random Glucose 214 mg/dl Calcium Level 8.7 mg/dl Total Creatine Kinase 64 U/L 57 U/L Creatine Kinase MB 0.9 ng/ml 0.9 ng/ml Creatine Kinase MB Ratio 1.4 1.6 Troponin I < 0.015 ng/ml < 0.015 ng/ml Triglycerides Level 35 mg/dl Cholesterol Level 118 mg/dl HDL Cholesterol 49 mg/dl LDL Cholesterol, Calculated 62 mg/dl VLDL Cholesterol, Calculated 7 mg/dl Cholesterol/HDL Ratio 2.4 Bedside Glucose 220 mg/dl 226 mg/dl Test 02/04/17 16:38 02/04/17 20:00 Bedside Glucose 244 mg/dl 174 mg/dl Assessment & Plan HYPOXIA / DYSPNEA ON EXERTION Progressive dyspnea on exertion without anginal symptoms. O2 saturation in ED as low as 87% on room air. Known history of coronary artery disease, status post PCI. No apparent pulmonary edema or interstitial lung disease on chest x-ray. Echo showed normal left ventricular wall motion and function, small pericardial effusion without tamponade. Receiving prednisone and nebulizer treatments. May be useful to check outpatient PFTs after course of steroid therapy. Check 2-step pulse oximetry prior to discharge. CORONARY ARTERY DISEASE Followed by Dr. Griffith. S/P PCI. Dyspnea on exertion could be secondary to myocardial ischemia. Echo shows normal LV wall motion and function. Probably unable to exercise adequately to achieve diagnostic treadmill stress test. Pharmacologic stress test considered, but patient had an adverse reaction to a stress test several years ago and is reluctant to have study repeated. Continue aspirin, carvedilol. HYPERTENSION Continue carvedilol, lisinopril. DM TYPE 2 Usually well-controlled on glimepiride. Expect elevated blood sugar secondary to steroid therapy. Check hemoglobin A1c. Hold glimepiride during hospital stay. FBS this morning = 220. Adjust Lantus/NovoLog per protocol. UTI (present on admission) UA showed leukocyte esterase, wbc's, bacteria. Urine culture growing Escherichia coli, sensitivities pending. Continue ceftriaxone pending final results. VTE PROPHYLAXIS SQ heparin. Ambulate. DISPOSITION Expected discharge to home. Family Medicine follow-up with Dr. Hart. Cardiology follow-up with Dr. Griffith. . Current Inpatient Medications: Current Inpatient Medications Medications (Trade) Dose Ordered Sig/Cesar Route Start Time Stop Time Status Last Admin Dose Admin Ceftriaxone Sodium 1 gm/ Dextrose 50 ml @ 100 mls/hr Q24H IV 02/04/17 21:00 02/07/17 21:29 02/04/17 21:27 100 MLS/HR Aspirin (Ecotrin Tab) 81 mg DAILY PO 02/04/17 08:00 03/06/17 08:59 02/04/17 08:10 81 MG Carvedilol (Coreg Tab) 3.125 mg BIDM PO 02/04/17 08:00 03/06/17 07:59 02/04/17 18:14 3.125 MG Citalopram Hydrobromide (celeXA TAB) 20 mg HS PO 02/04/17 21:00 03/06/17 20:59 02/04/17 21:28 20 MG Lisinopril (Zestril Tab) 10 mg DAILY PO 02/04/17 08:00 03/06/17 08:59 02/04/17 08:10 10 MG Oxybutynin Chloride (Ditropan Tab) 5 mg BID PO 02/04/17 08:00 03/06/17 08:59 02/04/17 21:28 5 MG Risperidone (Risperdal Tab) 0.5 mg QAM PO 02/04/17 08:00 03/06/17 08:59 02/04/17 08:10 0.5 MG Simvastatin (Zocor Tab) 40 mg HS PO 02/04/17 21:00 03/06/17 20:59 02/04/17 21:28 40 MG Insulin Aspart (novoLOG ASPART) SLIDING SCALE If C... ACHS SC 02/04/17 06:30 03/06/17 06:59 02/04/17 18:12 8 UNITS Glucose (Glucose 40% Gel) 15-30 GRAMS 15 GRAMS... UD PRN PO 02/03/17 22:00 03/05/17 21:59 Glucose (Glucose Chew Tab) 4-8 Tablets 4 Tabl... UD PRN PO 02/03/17 22:00 03/05/17 21:59 Dextrose (Dextrose 50% 50ML Syringe) 25-50ML OF 50% DW IV FOR... UD PRN IV 02/03/17 22:00 03/05/17 21:59 Glucagon (Glucagon Inj) 1 mg UD PRN SQ 02/03/17 22:00 03/05/17 21:59 Prednisone (PredniSONE TAB) 40 mg DAILY PO 02/04/17 08:00 03/06/17 08:59 02/04/17 08:10 40 MG Albuterol/ Ipratropium (Duoneb) 3 ml QIDR INH 02/04/17 08:00 03/06/17 07:59 02/04/17 18:40 3 ML Heparin Sodium (Porcine) (Heparin Sq 5000 Unit/0.5ml) 5,000 unit Q8H SQ 02/04/17 06:00 03/06/17 05:59 02/04/17 21:31 5,000 UNIT Acetaminophen (Tylenol Tab) 650 mg Q4H PRN PO 02/03/17 23:00 03/05/17 22:59 Al Hydrox/Mg Hydrox/Simethicone (Maalox Max Susp) 15 ml Q4H PRN PO 02/03/17 23:00 03/05/17 22:59 Magnesium Hydroxide (Milk Of Magnesia Susp) 30 ml Q6H PRN PO 02/03/17 23:00 03/05/17 22:59 Polyethylene (Miralax Powder Packet) 17 gm DAILY PRN PO 02/03/17 23:00 03/05/17 22:59 Ondansetron HCl (Zofran Inj) 4 mg Q6H PRN IV 02/03/17 23:00 03/05/17 22:59 Insulin Glargine (Lantus Solostar Pen) BSG UNITS LANTUS... BID SC 02/04/17 20:00 03/06/17 19:59 02/04/17 21:31 8 UNITS
[2017-02-05] VITALS (9 sets, daily range): BP systolic 127–150; BP diastolic 67–80; PULSE 64–79; TEMP 36.5–36.6; O2SAT 90–100
[2017-02-05] MEDS: HEPARIN SOD 5000 UNIT/0.5 ML CARP SQ SCH ×3 (06:31→21:03)
[2017-02-05] MEDS: ALBUT/IPRATROP 3MG/0.5MG NEB 3 ML VIAL INH SCH ×4 (07:16→19:31)
[2017-02-05] MEDS: CARVEDILOL 3.125 MG TAB PO SCH ×2 (08:30→16:50)
[2017-02-05] MEDS: OXYBUTYNIN CHLORIDE 5 MG TAB PO SCH ×2 (08:30→21:03)
[2017-02-05] MEDS: RISPERIDONE 0.5 MG TAB PO SCH (08:31)
[2017-02-05] MEDS: ASPIRIN 81 MG ECTAB PO SCH (08:31)
[2017-02-05] MEDS: LISINOPRIL 10 MG TAB PO SCH (08:31)
[2017-02-05] MEDS: INSULIN ASPART 100 UNITS/ML 3 ML PEN SC SCH ×4 (08:39→21:02)
[2017-02-05] MEDS: INSULIN GLARGINE SOLOSTAR 100 UNITS/ML 3 ML PEN SC SCH ×2 (08:40→21:02)
[2017-02-05] MEDS: CEFTRIAXONE SOD INJ 1 GM in DEXTROSE 5% ADD-VANTAGE 50ML 50 ML IV SCH (21:03)
[2017-02-05] MEDS: CITALOPRAM 20 MG TAB PO SCH (21:04)
[2017-02-05] MEDS: SIMVASTATIN 40 MG TAB PO SCH (21:04)
--- NOTE | 2017-02-05 23:56 | Progress Note ---
Medicine Progress Note Date & Time of Visit: Feb 05, 2017 at 12:00 . Subjective No fever. No coughing. Dyspnea improved. No nausea or vomiting. No diarrhea. . Objective Last 8 Hrs Date Time Temp Pulse Resp B/P (MAP) Pulse Ox O2 Delivery O2 Flow Rate FiO2 02/05/17 23:34 36.5 68 20 150/67 (94) 91 Room Air 02/05/17 19:33 67 16 90 Room Air Physical Exam: General- no distress Neck- no JVD Lungs- coarse rales at bases Heart- RRR, normal S1 and S2, no murmur or gallop appreciated Abdomen- + BS, soft, nontender Extremities- no pretibial edema or calf tenderness Neuro- alert Skin- warm and dry . Laboratory Results: Last 24 Hours Test 02/05/17 07:52 02/05/17 11:34 02/05/17 16:33 02/05/17 20:08 Bedside Glucose 103 mg/dl 158 mg/dl 200 mg/dl 233 mg/dl Assessment & Plan HYPOXIA / DYSPNEA ON EXERTION Progressive dyspnea on exertion without anginal symptoms. O2 saturation in ED as low as 87% on room air. Known history of coronary artery disease, status post PCI. No apparent pulmonary edema or interstitial lung disease on chest x-ray. Echo showed normal left ventricular wall motion and function, small pericardial effusion without tamponade. Receiving prednisone and nebulizer treatments. May be useful to check outpatient PFTs after course of steroid therapy. Check 2-step pulse oximetry prior to discharge. CORONARY ARTERY DISEASE Followed by Dr. Griffith. S/P PCI. Dyspnea on exertion could be secondary to myocardial ischemia. Echo shows normal LV wall motion and function. Probably unable to exercise adequately to achieve diagnostic treadmill stress test. Pharmacologic stress test considered, but patient had an adverse reaction to a stress test several years ago and is reluctant to have study repeated. Continue aspirin, carvedilol. HYPERTENSION Continue carvedilol, lisinopril. DM TYPE 2 Usually well-controlled on glimepiride. Expect elevated blood sugar secondary to steroid therapy. Check hemoglobin A1c. Hold glimepiride during hospital stay. FBS this morning = 103. Adjust Lantus/NovoLog per protocol. UTI (present on admission) UA showed leukocyte esterase, wbc's, bacteria. Urine culture growing Escherichia coli, sensitivities pending. Continue ceftriaxone pending final results. VTE PROPHYLAXIS SQ heparin. Ambulate. DISPOSITION Expected discharge to home. Family Medicine follow-up with Dr. Hart. Cardiology follow-up with Dr. Griffith. . Current Inpatient Medications: Current Inpatient Medications Medications (Trade) Dose Ordered Sig/Cesar Route Start Time Stop Time Status Last Admin Dose Admin Ceftriaxone Sodium 1 gm/ Dextrose 50 ml @ 100 mls/hr Q24H IV 02/04/17 21:00 02/07/17 21:29 02/05/17 21:03 100 MLS/HR Aspirin (Ecotrin Tab) 81 mg DAILY PO 02/04/17 08:00 03/06/17 08:59 02/05/17 08:31 81 MG Carvedilol (Coreg Tab) 3.125 mg BIDM PO 02/04/17 08:00 03/06/17 07:59 02/05/17 16:50 3.125 MG Citalopram Hydrobromide (celeXA TAB) 20 mg HS PO 02/04/17 21:00 03/06/17 20:59 02/05/17 21:04 20 MG Lisinopril (Zestril Tab) 10 mg DAILY PO 02/04/17 08:00 03/06/17 08:59 02/05/17 08:31 10 MG Oxybutynin Chloride (Ditropan Tab) 5 mg BID PO 02/04/17 08:00 03/06/17 08:59 02/05/17 21:03 5 MG Risperidone (Risperdal Tab) 0.5 mg QAM PO 02/04/17 08:00 03/06/17 08:59 02/05/17 08:31 0.5 MG Simvastatin (Zocor Tab) 40 mg HS PO 02/04/17 21:00 03/06/17 20:59 02/05/17 21:04 40 MG Insulin Aspart (novoLOG ASPART) SLIDING SCALE If C... ACHS SC 02/04/17 06:30 03/06/17 06:59 02/05/17 21:02 3 UNITS Glucose (Glucose 40% Gel) 15-30 GRAMS 15 GRAMS... UD PRN PO 02/03/17 22:00 03/05/17 21:59 Glucose (Glucose Chew Tab) 4-8 Tablets 4 Tabl... UD PRN PO 02/03/17 22:00 03/05/17 21:59 Dextrose (Dextrose 50% 50ML Syringe) 25-50ML OF 50% DW IV FOR... UD PRN IV 02/03/17 22:00 03/05/17 21:59 Glucagon (Glucagon Inj) 1 mg UD PRN SQ 02/03/17 22:00 03/05/17 21:59 Prednisone (PredniSONE TAB) 40 mg DAILY PO 02/04/17 08:00 03/06/17 08:59 02/05/17 08:30 40 MG Albuterol/ Ipratropium (Duoneb) 3 ml QIDR INH 02/04/17 08:00 03/06/17 07:59 02/05/17 19:31 3 ML Heparin Sodium (Porcine) (Heparin Sq 5000 Unit/0.5ml) 5,000 unit Q8H SQ 02/04/17 06:00 03/06/17 05:59 02/05/17 21:03 5,000 UNIT Acetaminophen (Tylenol Tab) 650 mg Q4H PRN PO 02/03/17 23:00 03/05/17 22:59 Al Hydrox/Mg Hydrox/Simethicone (Maalox Max Susp) 15 ml Q4H PRN PO 02/03/17 23:00 03/05/17 22:59 Magnesium Hydroxide (Milk Of Magnesia Susp) 30 ml Q6H PRN PO 02/03/17 23:00 03/05/17 22:59 Polyethylene (Miralax Powder Packet) 17 gm DAILY PRN PO 02/03/17 23:00 03/05/17 22:59 Ondansetron HCl (Zofran Inj) 4 mg Q6H PRN IV 02/03/17 23:00 03/05/17 22:59 Insulin Glargine (Lantus Solostar Pen) BSG UNITS LANTUS... BID SC 02/04/17 20:00 03/06/17 19:59 02/05/17 21:02 12 UNITS
[2017-02-06] VITALS (7 sets, daily range): BP systolic 125–159; BP diastolic 76–80; PULSE 59–71; TEMP 36.5–36.7; O2SAT 90–96
[2017-02-06] MEDS: HEPARIN SOD 5000 UNIT/0.5 ML CARP SQ SCH ×2 (06:13→13:35)
[2017-02-06] MEDS: INSULIN ASPART 100 UNITS/ML 3 ML PEN SC SCH ×3 (06:30→17:49)
[2017-02-06] MEDS: ALBUT/IPRATROP 3MG/0.5MG NEB 3 ML VIAL INH SCH ×3 (07:43→14:58)
[2017-02-06] MEDS: INSULIN GLARGINE SOLOSTAR 100 UNITS/ML 3 ML PEN SC SCH (08:00)
[2017-02-06] MEDS: OXYBUTYNIN CHLORIDE 5 MG TAB PO SCH (08:19)
[2017-02-06] MEDS: ASPIRIN 81 MG ECTAB PO SCH (08:19)
[2017-02-06] MEDS: LISINOPRIL 10 MG TAB PO SCH (08:20)
[2017-02-06] MEDS: RISPERIDONE 0.5 MG TAB PO SCH (08:20)
[2017-02-06] MEDS: CARVEDILOL 3.125 MG TAB PO SCH ×2 (08:20→17:49)
--- NOTE | 2017-02-06 11:00 | Progress Note ---
Medicine Progress Note Date & Time of Visit: Feb 06, 2017 at 10:40 . Subjective Doing well. No cough or SOB. No chest pain. No nausea or vomiting. No fever. Ambulating. . Objective Last 8 Hrs Date Time Temp Pulse Resp B/P (MAP) Pulse Ox O2 Delivery O2 Flow Rate FiO2 02/06/17 08:00 95 Room Air 02/06/17 07:46 63 16 95 Room Air 02/06/17 07:37 36.7 69 16 159/80 (106) 93 Room Air Physical Exam: General- no distress Neck- no JVD Lungs- coarse rales at bases Heart- RRR, normal S1 and S2, no murmur or gallop appreciated Abdomen- + BS, soft, nontender Extremities- no pretibial edema or calf tenderness Neuro- alert, oriented Skin- warm and dry . Laboratory Results: Last 24 Hours Test 02/05/17 11:34 02/05/17 16:33 02/05/17 20:08 02/06/17 07:40 Bedside Glucose 158 mg/dl 200 mg/dl 233 mg/dl 86 mg/dl Assessment & Plan HYPOXIA / DYSPNEA ON EXERTION Progressive dyspnea on exertion without anginal symptoms. O2 saturation in ED as low as 87% on room air. Known history of coronary artery disease, status post PCI. No apparent infiltrates, pulmonary edema or interstitial lung disease on chest x -ray. Echo showed normal left ventricular wall motion and function, small pericardial effusion without tamponade. Received prednisone and nebulizer treatments with improvement. O2 sats 93-95% on RA by discharge; maintained O2 sats on RA during ambulation. No need for home O2. Discharge on steroid taper. Suggest outpatient PFTs after course of steroid therapy. CORONARY ARTERY DISEASE Followed by Dr. Griffith. S/P PCI. Dyspnea on exertion could be secondary to myocardial ischemia. Echo shows normal LV wall motion and function. Probably unable to exercise adequately to achieve diagnostic treadmill stress test. Pharmacologic stress test considered, but patient had an adverse reaction to a stress test several years ago and is reluctant to have study repeated. Continue aspirin, carvedilol. HYPERTENSION Continue carvedilol, lisinopril. DM TYPE 2 Usually well-controlled on glimepiride. Expect elevated blood sugar secondary to steroid therapy. Recent hemoglobin A1c in clinic 5.5. Hold glimepiride during hospital stay. FBS this morning = 86. Received Lantus/NovoLog per protocol. Discharge on usual regimen. UTI (present on admission) UA showed leukocyte esterase, wbc's, bacteria. Urine culture grew Escherichia coli, pansensitive. Received ceftriaxone x 3 doses. Discharge on amoxicillin to complete 7 day course of therapy. VTE PROPHYLAXIS SQ heparin. Ambulating. DISPOSITION Discharge to her daughter's home. Family Medicine follow-up with Dr. Hart. Cardiology follow-up with Dr. Griffith. . Current Inpatient Medications: Current Inpatient Medications Medications (Trade) Dose Ordered Sig/Cesar Route Start Time Stop Time Status Last Admin Dose Admin Ceftriaxone Sodium 1 gm/ Dextrose 50 ml @ 100 mls/hr Q24H IV 02/04/17 21:00 02/07/17 21:29 02/05/17 21:03 100 MLS/HR Aspirin (Ecotrin Tab) 81 mg DAILY PO 02/04/17 08:00 03/06/17 08:59 02/06/17 08:19 81 MG Carvedilol (Coreg Tab) 3.125 mg BIDM PO 02/04/17 08:00 03/06/17 07:59 02/06/17 08:20 3.125 MG Citalopram Hydrobromide (celeXA TAB) 20 mg HS PO 02/04/17 21:00 03/06/17 20:59 02/05/17 21:04 20 MG Lisinopril (Zestril Tab) 10 mg DAILY PO 02/04/17 08:00 03/06/17 08:59 02/06/17 08:20 10 MG Oxybutynin Chloride (Ditropan Tab) 5 mg BID PO 02/04/17 08:00 03/06/17 08:59 02/06/17 08:19 5 MG Risperidone (Risperdal Tab) 0.5 mg QAM PO 02/04/17 08:00 03/06/17 08:59 02/06/17 08:20 0.5 MG Simvastatin (Zocor Tab) 40 mg HS PO 02/04/17 21:00 03/06/17 20:59 02/05/17 21:04 40 MG Insulin Aspart (novoLOG ASPART) SLIDING SCALE If C... ACHS SC 02/04/17 06:30 03/06/17 06:59 02/05/17 21:02 3 UNITS Glucose (Glucose 40% Gel) 15-30 GRAMS 15 GRAMS... UD PRN PO 02/03/17 22:00 03/05/17 21:59 Glucose (Glucose Chew Tab) 4-8 Tablets 4 Tabl... UD PRN PO 02/03/17 22:00 03/05/17 21:59 Dextrose (Dextrose 50% 50ML Syringe) 25-50ML OF 50% DW IV FOR... UD PRN IV 02/03/17 22:00 03/05/17 21:59 Glucagon (Glucagon Inj) 1 mg UD PRN SQ 02/03/17 22:00 03/05/17 21:59 Prednisone (PredniSONE TAB) 40 mg DAILY PO 02/04/17 08:00 03/06/17 08:59 02/06/17 08:19 40 MG Albuterol/ Ipratropium (Duoneb) 3 ml QIDR INH 02/04/17 08:00 03/06/17 07:59 02/06/17 07:43 3 ML Heparin Sodium (Porcine) (Heparin Sq 5000 Unit/0.5ml) 5,000 unit Q8H SQ 02/04/17 06:00 03/06/17 05:59 02/06/17 06:13 5,000 UNIT Acetaminophen (Tylenol Tab) 650 mg Q4H PRN PO 02/03/17 23:00 03/05/17 22:59 Al Hydrox/Mg Hydrox/Simethicone (Maalox Max Susp) 15 ml Q4H PRN PO 02/03/17 23:00 03/05/17 22:59 Magnesium Hydroxide (Milk Of Magnesia Susp) 30 ml Q6H PRN PO 02/03/17 23:00 03/05/17 22:59 Polyethylene (Miralax Powder Packet) 17 gm DAILY PRN PO 02/03/17 23:00 03/05/17 22:59 Ondansetron HCl (Zofran Inj) 4 mg Q6H PRN IV 02/03/17 23:00 03/05/17 22:59 Insulin Glargine (Lantus Solostar Pen) BSG UNITS LANTUS... BID SC 02/04/17 20:00 03/06/17 19:59 02/05/17 21:02 12 UNITS
[2017-02-06] MEDS ORDERED: AMX500 PO ×2 (11:11→11:15)
[2017-02-06] MEDS ORDERED: PRED10TA PO ×2 (11:11→11:16)
--- NOTE | 2017-02-06 11:21 | Discharge Instructions ---
Discharge Instructions Date of Service Feb 06, 2017. Admission Reason for Admission: trouble breathing, bladder infection . Discharge Discharge Diagnosis / Problem: trouble breathing, bladder infection Discharge Goals Goal(s): Improve function, Improve disease control Activity Recommendations Activity Limitations: resume your previous activity . Instructions / Follow-Up Instructions / Follow-Up APPOINTMENTS: [facility] Dr. Hart Office will contact you with appointment. OTHER INSTRUCTIONS: You were having trouble breathing. There was no sign of pneumonia or congestive heart failure on your x-ray. You may have some asthma. Take prednisone as directed: 4 pills (40 mg) for 2 days 3 pills (30 mg) for 2 days 2 pills (20 mg) for 2 days 1 pill (10 mg) for 2 days then stop You have a bladder infection. Take amoxicillin 3 times a day for 4 days. Prescriptions were sent to [facility] in [place]. Seek medical attention if you have: * temperature above 101 * chest pain or trouble breathing * abdominal pain, nausea, vomiting * diarrhea, dark stools or bloody stools * any unanswered questions or concerns Call 911 if symptoms are severe. Call if you have any questions or problems. My cell # is [phone]. You can also reach a [facility] hospitalist on duty at [facility] 24 hours a day by calling [phone]. Please take good care of yourself. Jerod Guevara . Current Hospital Diet Patient's current hospital diet: AHA Diet (Heart Healthy), Diabetes Type 2 Diet Discharge Diet Recommended Diet: AHA Diet (Heart Healthy), Diabetes Type 2 Diet Pending Studies Studies pending at discharge: no Laboratory Results Lipid Panel Test 02/04/17 03:39 Range/Units Triglycerides Level 35 0-150 mg/dl Cholesterol Level 118 0-200 mg/dl HDL Cholesterol 49 mg/dl Cholesterol/HDL Ratio 2.4 LDL Cholesterol, Calculated 62 mg/dl Medical Emergencies . Who to Call and When: Medical Emergencies: If at any time you feel your situation is an emergency, please call 911 immediately. . Non-Emergent Contact Non-Emergency issues call your: Primary Care Provider, Hospital Doctor . . "Provider Documentation" section prepared by Jerod Guevara. . VTE Core Measure Inpt VTE Proph given/why not?: Unfractionated heparin SQ
--- NOTE | 2017-02-06 11:29 | Discharge Summary ---
Discharge Summary Date of Service Feb 06, 2017. Discharge Summary Admission Date: Feb 03, 2017 at 23:01 Discharge Date: Feb 06, 2017 Discharge Disposition: Home Principal Diagnosis: dyspnea / hypoxia OTHER SECONDARY DIAGNOSES: urinary tract infection E coli (present on admission) . Secondary Diagnoses/Problems: Chronic Medical Problems: (1) Coronary artery disease Status: Chronic (2) Diabetes mellitus, type 2 Status: Chronic (3) Dyslipidemia Status: Chronic (4) Hypertension Status: Chronic Surgical Problems: (1) Status post cardiac pacemaker procedure Status: Chronic (2) Status post coronary artery stent placement Status: Chronic . Procedures: IV meds echocardiogram . Pending Studies/Follow-Up: Please arrange for outpatient PFT's re: dyspnea. . Medication Reconciliation New Medications: Amoxicillin (Amoxicillin) 500 Mg Cap 500 MG PO TID, #12 CAP Prednisone Tab (Prednisone) 10 Mg Tab 0 PO UD, #20 TAB Continued Medications: Aspirin (Aspirin Ec) 81 Mg Tab 81 MG PO DAILY Carvedilol (Coreg) 3.125 Mg Tab 3.125 MG PO BIDM, TAB Citalopram Hydrobromide (Citalopram Hydrobromide) 20 Mg Tab 20 MG PO HS for 90 Days, TAB 3 Refills Glimepiride (Glimepiride) 1 Mg Tab 1 MG PO QAM, TAB 3 Refills Lisinopril (Prinivil) 10 Mg Tab 10 MG PO DAILY, TAB Nitroglycerin (Nitrostat) 0.4 Mg Tab 0.4 MG UT PRN, 0 Refills Oxybutynin Chloride (Ditropan) 5 Mg Tab 5 MG PO BID, TAB Risperidone (Risperdal) 0.5 Mg Tab 0.5 MG PO QAM, TAB Simvastatin (Zocor) 40 Mg Tab 40 MG PO HS, TAB Admission Information HPI (per Admitting provider): This is an 81 year old female with a PMH of CAD s/p stents, sick sinus syndrome s/p permanent pacemaker, depression/anxiety, HTN, DM2, HLD presents with shortness of breath for the past few months and worse the past few days. She denies any chest pain. Denies fevers/chills, denies cough/production. She states that the breathing is worse when she is walking up and down stairs and with exertion, but improves with rest. Denies smoking history; no immediate family members smoke. As per family members, they are concerned because the patient may be allergic to cats and she has some at home. Some family members spoke to me on their own expressing concern about her home situation - the cats may be urinating around the house as the house smells of cat urine. She does not take any inhalers, but was told she was to be on an inhaler in the past. . Physical Exam (per Admitting): General Appearance: no apparent distress Head: normocephalic, atraumatic Eyes: normal inspection ENT: hearing grossly normal Neck: supple, no adenopathy, thyroid normal, no JVD Respiratory/Chest: chest non-tender, lungs clear, normal breath sounds, no respiratory distress, no accessory muscle use Cardiovascular: regular rate, rhythm, no edema, no gallop, no JVD, no murmur , normal peripheral pulses Abdomen/GI: normal bowel sounds, non tender, soft Back: no CVA tenderness, no muscle spasm Extremities/Musculoskelatal: normal inspection, no calf tenderness, normal capillary refill, no pedal edema, normal range of motion Neurologic/Psych: 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 O2 saturation in ED as low as 87% on room air. Known history of coronary artery disease, status post PCI. No apparent infiltrates, pulmonary edema or interstitial lung disease on chest x -ray. Echo showed normal left ventricular wall motion and function, small pericardial effusion without tamponade. Received prednisone and nebulizer treatments with improvement. O2 sats 93-95% on RA by discharge; maintained O2 sats on RA during ambulation. No need for home O2. Discharge on steroid taper. Suggest outpatient PFTs after course of steroid therapy. Check f/u chest x-ray if symptoms worsen. CORONARY ARTERY DISEASE Followed by Dr. Griffith. S/P PCI. Dyspnea on exertion could be secondary to myocardial ischemia. Echo shows normal LV wall motion and function. Discussed with Cardiology. Probably unable to exercise adequately to achieve diagnostic treadmill stress test. Pharmacologic stress test considered, but patient had an adverse reaction to a stress test several years ago and is reluctant to have study repeated. Continue aspirin, carvedilol. HYPERTENSION Continue carvedilol, lisinopril. DM TYPE 2 Usually well-controlled on glimepiride. Expect elevated blood sugar secondary to steroid therapy. Recent hemoglobin A1c in clinic 5.5. Held glimepiride during hospital stay. Received Lantus/NovoLog per protocol. FBS day of discharge was 86. Discharge on usual regimen. UTI (present on admission) UA showed leukocyte esterase, wbc's, bacteria. Urine culture grew Escherichia coli, pansensitive. Received ceftriaxone x 3 doses. Discharge on amoxicillin to complete 7 day course of therapy. VTE PROPHYLAXIS Received SQ heparin. Ambulating. DISPOSITION Discharge to her daughter's home. Family Medicine follow-up with Dr. Hart. Cardiology follow-up with Dr. Griffith. . Total time spent on discharge = 40 min. This includes examination of the patient, discharge planning, medication reconciliation, and communication with other providers. . Discharge Instructions Date of Service Feb 06, 2017. Admission Reason for Admission: trouble breathing, bladder infection . Discharge Discharge Diagnosis / Problem: trouble breathing, bladder infection Discharge Goals Goal(s): Improve function, Improve disease control Activity Recommendations Activity Limitations: resume your previous activity . Instructions / Follow-Up Instructions / Follow-Up APPOINTMENTS: [facility] Dr. Hart Office will contact you with appointment. OTHER INSTRUCTIONS: You were having trouble breathing. There was no sign of pneumonia or congestive heart failure on your x-ray. You may have some asthma. Take prednisone as directed: 4 pills (40 mg) for 2 days 3 pills (30 mg) for 2 days 2 pills (20 mg) for 2 days 1 pill (10 mg) for 2 days then stop You have a bladder infection. Take amoxicillin 3 times a day for 4 days. Prescriptions were sent to [facility] in [place]. Seek medical attention if you have: * temperature above 101 * chest pain or trouble breathing * abdominal pain, nausea, vomiting * diarrhea, dark stools or bloody stools * any unanswered questions or concerns Call 911 if symptoms are severe. Call if you have any questions or problems. My cell # is [phone]. You can also reach a [facility] hospitalist on duty at [facility] 24 hours a day by calling [phone]. Please take good care of yourself. Jerod Guevara . Current Hospital Diet Patient's current hospital diet: AHA Diet (Heart Healthy), Diabetes Type 2 Diet Discharge Diet Recommended Diet: AHA Diet (Heart Healthy), Diabetes Type 2 Diet Pending Studies Studies pending at discharge: no Laboratory Results Lipid Panel Test 02/04/17 03:39 Range/Units Triglycerides Level 35 0-150 mg/dl Cholesterol Level 118 0-200 mg/dl HDL Cholesterol 49 mg/dl Cholesterol/HDL Ratio 2.4 LDL Cholesterol, Calculated 62 mg/dl Medical Emergencies . Who to Call and When: Medical Emergencies: If at any time you feel your situation is an emergency, please call 911 immediately. . Non-Emergent Contact Non-Emergency issues call your: Primary Care Provider, Hospital Doctor . . "Provider Documentation" section prepared by Jerod Guevara. . VTE Core Measure Inpt VTE Proph given/why not?: Unfractionated heparin SQ . Additional Copies To Timo Hart M.D.
== END 2017-02-06 17:55 | disposition home health service (06) | DRG 206 ==
LOC: C.EDB 17:07 → C.4E 23:01 → ENRESERV 23:07
PROVIDERS: ADMIT Family Medicine; ATTEND Hospitalist
DX: R09.02 Hypoxemia (principal); N39.0 Urinary tract infection, site not specified; I25.10 Atherosclerotic heart disease of native coronary artery without angina pectoris; R06.09 Other forms of dyspnea; B96.20 Unspecified Escherichia coli [E. coli] as the cause of diseases classified elsewhere; E11.9 Type 2 diabetes mellitus without complications; I10 Essential (primary) hypertension; F32.9 Major depressive disorder, single episode, unspecified; F41.9 Anxiety disorder, unspecified; E78.5 Hyperlipidemia, unspecified; Z79.82 Long term (current) use of aspirin; Z79.899 Other long term (current) drug therapy; Z95.0 Presence of cardiac pacemaker; Z95.5 Presence of coronary angioplasty implant and graft